=== PATIENT | male | born 1970 | race Caucasian/White ===

== ENCOUNTER → 2024-01-18 | Outpatient (CLI) | payer BC, OTHER ==
--- NOTE | 2024-01-18 13:05 | US ---
EXAMINATION TYPE: US carotid duplex BILAT DATE OF EXAM: 01/18/2024 COMPARISON: NONE CLINICAL INDICATION: Male, 53 years old with history of R42 DIZZINESS AND GIDDINESS; dizziness TECHNIQUE: Grayscale, color Doppler and spectral Doppler evaluation of the bilateral carotid systems and vertebral arteries. Indirect Doppler criteria was utilized. FINDINGS: EXAM MEASUREMENTS: RIGHT: Peak Systolic Velocity (PSV) cm/sec ----- Right CCA: 80.2 ----- Right ICA: 82.0 ----- Right ECA: 127 ICA/CCA ratio: 1.02 RIGHT: End Diastole cm/sec ----- Right CCA: 13.1 ----- Right ICA: 20.8 ----- Right ECA: 21.4 LEFT: Peak Systolic Velocity (PSV) cm/sec ----- Left CCA: 86.2 ----- Left ICA: 81.4 ----- Left ECA: 109 ICA/CCA ratio: 0.94 LEFT: End Diastole cm/sec ----- Left CCA: 23.2 ----- Left ICA: 33.3 ----- Left ECA: 11.4 VERTEBRALS (direction of flow): Right Vertebral: Antegrade Left Vertebral: not visualized Rhythm: Normal CAR DISPATCHER NOTES: no plaque or elevated velocities seen IMPRESSION: No ultrasound evidence for hemodynamically significant stenosis of the bilateral visualized carotid a rterial systems. Left vertebral artery is not visualized. Consider further evaluation with CTA head a nd neck. Criteria for Assigning % of Stenosis / Diameter reduction (Estimation based on the indirect measurements of the internal carotid artery velocities (ICA PSV). 1. Normal (no stenosis)=ICA PSV < 125 cm/s: ratio < 2.0: ICA EDV<40 cm/s. 2. Less than 50% stenosis=ICA PSV < 125 cm/s: ratio < 2.0: ICA EDV<40 cm/s. 3. 50 to 69% stenosis=ICA PSV of 125 to 230 cm/s: ration 2.0 ? 4.0: ICA EDV 40-100 cm/s. 4. Greater than 70% stenosis to near occlusion= ICA PSV > 230 cm/s: ratio > 4.0: ICA EDV > 100 cm/s. 5. Near occlusion= ICA PSV velocities may be low or undetectable: variable ratio and ICA EDV. 6. Total occlusion=unable to detect flow. [facility], , 01/18/2024 1:03 PM
--- NOTE | 2024-01-18 13:09 | US ---
EXAMINATION TYPE: US arterial LE single level DATE OF EXAM: 01/18/2024 12:31 PM CLINICAL INDICATION: Male, 53 years old with history of M79.609 PAIN IN LIMB; pain in limbs History of: Smoker: No Hypertension: Yes Diabetic: No Hyperlipidemia: No TIA/CVA: No Previous Vascular Surgery: No CAD: No VA: No Vascular Ulcers: NO Claudication: NO Gangrene: No Right Brachial Pressure: 138 Left Brachial Pressure: 142 Ankle-Brachial Indices: Right: 1.24 Left: 1.19 (Vessel hardening > 1.4; Normal 0.9 - 1.4, Moderate 0.7 - 0.9, Severe 0.5-0.7) Triphasic right posterior tibial waveform. Biphasic right dorsalis pedis waveform. Triphasic left pos terior tibial waveform. Biphasic left dorsalis pedis waveform. IMPRESSION: Normal ankle-brachial indices bilaterally. [facility], , 01/18/2024 1:07 PM
== END | disposition home or self-care (01) ==
LOC: RADUSWWP 11:06
PROVIDERS: ATTEND Family Medicine
DX: R42 Dizziness and giddiness (principal); M79.609 Pain in unspecified limb
CPT/HCPCS: 93880; 93922